=== PATIENT | female | born 1940 | race Caucasian/White ===

== ENCOUNTER 2022-04-19 11:03 | Outpatient (CLI) | payer MEDICARE, BC | END 2022-04-19 11:04 | disposition home or self-care (01) | LOC: CSHMAMMO 11:03 | PROVIDERS: ATTEND Internal Medicine | DX: Z12.31 Encounter for screening mammogram for malignant neoplasm of breast (principal) | CPT/HCPCS: 77063; 77067 ==

== ENCOUNTER 2023-04-23 10:16 | Outpatient (CLI) | payer MEDICARE, BC | END 2023-04-23 10:17 | disposition home or self-care (01) | LOC: CSHMAMMO 10:16 | PROVIDERS: ATTEND Internal Medicine | DX: Z12.31 Encounter for screening mammogram for malignant neoplasm of breast (principal) | CPT/HCPCS: 77063; 77067 ==

== ENCOUNTER 2024-03-01 06:06 | Emergency (ER) | payer MEDICARE ==
[2024-03-01 06:33] LABS: #Basophils 0.06 10x3/uL (0.0-0.2); #Eosinphils 0.17 10x3/uL (0.0-0.5); #Monocytes 0.84 10x3/uL (0.0-1.1); %Basophils 0.6 % (0.0-2.0); %Eosinophils 1.8 % (0.0-6.0); %Lymphocytes 26.3 % (18.0-47.0); %Monocytes 8.8 % (0.0-10.0); %Neutrophils 62.1 % (40.0-75.0); Hematocrit 30.9 % (34.9-44.5); Hemoglobin 10.8 g/dL (12.0-15.5); Mean Corpuscular Volume 91.7 fL (81.6-98.3); Platelet Count 401 10x3/uL (150-450); RBC Distribution Width 13.1 % (11.5-14.5); Red Blood Cell (RBC) Count 3.37 10x6/uL (3.90-5.03); White Blood Cell (WBC) Count 9.5 10x3/uL (3.5-10.5)
[2024-03-01 06:41] LABS: PTT 23.2 sec (22.0-33.0); Prothrombin Time 10.8 sec (9.5-12.1)
[2024-03-01 06:45] LABS: ALT (SGPT) 10 U/L (8-55); AST (SGOT) 22 U/L (5-34); Alkaline Phosphatase 114 U/L (40-110); Anion Gap 12 mmol/L (10-20); BUN (Urea Nitrogen) 32 mg/dL (9.8-20.1); Bilirubin, Total 0.3 mg/dL (0.2-1.2); Calc. Creatinine Clearance 0 mL/min (70-130); Calcium 9.1 mg/dL (7.8-10.44); Carbon Dioxide 17 mmol/L (23-31); Chloride 108 mmol/L (98-107); Estimated GFR 43; Globulin 2.1 g/dL (2.4-3.5); Glucose 113 mg/dL (83-110); Magnesium 1.8 mg/dL (1.6-2.6); Potassium 4.4 mmol/L (3.5-5.1); Protein, Total 5.1 g/dL (5.8-8.1); Sodium 133 mmol/L (136-145)
[2024-03-01 06:51] LABS: Troponin I Less than 0.010 ng/mL (< 0.028)
[2024-03-01] MEDS ORDERED: fentaNYL 50 mcg/mL 1 mL Vial ONE (06:55)
[2024-03-01 07:10] LABS: Acetaminophen Less than 10 mcg/mL (10.0-30.0); Alcohol Less than 10.0 mg/dL (Less than 10); Salicylate Less than 8.0 mg/dL (15.0-30.0)
[2024-03-01] MEDS ORDERED: Etomidate 40 MG (20 mL) VIAL ONE (07:29)
[2024-03-01] MEDS ORDERED: Ondansetron PF 4 MG/2 ML Vial ONE (07:59)
[2024-03-04] MEDS ORDERED: Vancomycin 1 GM VIAL ONE (13:02)
[2024-03-04] MEDS ORDERED: Gentamicin 80 MG (100 mL) BAG ONE (13:02)
[2024-03-04] MEDS ORDERED: ePHEDrine Sulfate 50 MG/10 ML VIAL ONE (13:36)
== END 2024-03-01 10:24 | disposition home or self-care (01) ==
LOC: CSHERS 06:06
DX: S73.014A Posterior dislocation of right hip, initial encounter (principal); I10 Essential (primary) hypertension; E78.00 Pure hypercholesterolemia, unspecified; Z79.899 Other long term (current) drug therapy; Z79.82 Long term (current) use of aspirin; W22.8XXA Striking against or struck by other objects, initial encounter
CPT/HCPCS: 27250; 70450; 71045; 72125; 72192; 73502; 80053; 80307; 83605; 83735; 83880; 84484; 85025; 85610; 85730; 93005; 96374; 96375; 99152; 99284; G0390; J2405; J3010

== ENCOUNTER 2024-03-03 16:21 | Inpatient (IN) | payer MEDICARE ==
[2024-03-03 20:24] VITALS: BMI 24.7
[2024-03-03 20:33] LABS: #Basophils 0.05 10x3/uL (0.0-0.2); #Eosinphils 0.08 10x3/uL (0.0-0.5); #Monocytes 0.74 10x3/uL (0.0-1.1); %Basophils 0.5 % (0.0-2.0); %Eosinophils 0.8 % (0.0-6.0); %Lymphocytes 22.6 % (18.0-47.0); %Monocytes 7.2 % (0.0-10.0); %Neutrophils 68.7 % (40.0-75.0); Hematocrit 29.9 % (34.9-44.5); Hemoglobin 10.1 g/dL (12.0-15.5); Mean Corpuscular HGB CONC 33.8 g/dL (32.0-36.0); Mean Corpuscular Hemoglobin 32.1 pg (27.0-33.0); Mean Corpuscular Volume 94.9 fL (81.6-98.3); Mean Platelet Volume 9.1 fL (7.4-10.4); Platelet Count 329 10x3/uL (150-450); RBC Distribution Width 13.2 % (11.5-14.5); Red Blood Cell (RBC) Count 3.15 10x6/uL (3.90-5.03); White Blood Cell (WBC) Count 10.3 10x3/uL (3.5-10.5)
[2024-03-03 20:49] LABS: Anion Gap 9 mmol/L (10-20); BUN (Urea Nitrogen) 26 mg/dL (9.8-20.1); Calc. Creatinine Clearance 36 mL/min (70-130); Calcium 8.5 mg/dL (7.8-10.44); Carbon Dioxide 20 mmol/L (23-31); Chloride 108 mmol/L (98-107); Estimated GFR 43; Glucose 103 mg/dL (83-110); Magnesium 1.7 mg/dL (1.6-2.6); Potassium 5.3 mmol/L (3.5-5.1); Sodium 132 mmol/L (136-145)
[2024-03-04 05:05] LABS: Anion Gap 8 mmol/L (10-20); BUN (Urea Nitrogen) 22 mg/dL (9.8-20.1); Calc. Creatinine Clearance 44 mL/min (70-130); Calcium 8.5 mg/dL (7.8-10.44); Carbon Dioxide 20 mmol/L (23-31); Chloride 110 mmol/L (98-107); Estimated GFR 55; Glucose 90 mg/dL (83-110); Potassium 4.8 mmol/L (3.5-5.1); Sodium 133 mmol/L (136-145)
[2024-03-05 04:27] LABS: #Basophils 0.01 10x3/uL (0.0-0.2); #Monocytes 0.46 10x3/uL (0.0-1.1); #Neutrophils 10.85 10x3/uL (1.5-8.4); %Basophils 0.1 % (0.0-2.0); %Lymphocytes 9.5 % (18.0-47.0); %Monocytes 3.7 % (0.0-10.0); %Neutrophils 86.1 % (40.0-75.0); Hematocrit 26.9 % (34.9-44.5); Hemoglobin 9.4 g/dL (12.0-15.5); Mean Corpuscular HGB CONC 34.9 g/dL (32.0-36.0); Mean Corpuscular Hemoglobin 32.9 pg (27.0-33.0); Mean Corpuscular Volume 94.1 fL (81.6-98.3); Mean Platelet Volume 9.5 fL (7.4-10.4); Platelet Count 299 10x3/uL (150-450); RBC Distribution Width 13.1 % (11.5-14.5); Red Blood Cell (RBC) Count 2.86 10x6/uL (3.90-5.03); White Blood Cell (WBC) Count 12.6 10x3/uL (3.5-10.5)
[2024-03-05 04:40] LABS: Anion Gap 10 mmol/L (10-20); BUN (Urea Nitrogen) 18 mg/dL (9.8-20.1); Calc. Creatinine Clearance 63 mL/min (70-130); Calcium 8.2 mg/dL (7.8-10.44); Carbon Dioxide 19 mmol/L (23-31); Chloride 110 mmol/L (98-107); Estimated GFR 84; Glucose 127 mg/dL (83-110); Magnesium 2.2 mg/dL (1.6-2.6); Potassium 4.8 mmol/L (3.5-5.1); Sodium 134 mmol/L (136-145)
[2024-03-05 04:41] LABS: Vancomycin, Random 21.3 ug/mL (See Comment)
[2024-03-06 03:49] LABS: Vancomycin, Random 21.7 ug/mL (See Comment)
[2024-03-06 03:50] LABS: Anion Gap 10 mmol/L (10-20); BUN (Urea Nitrogen) 13 mg/dL (9.8-20.1); Calc. Creatinine Clearance 70 mL/min (70-130); Calcium 7.9 mg/dL (7.8-10.44); Carbon Dioxide 18 mmol/L (23-31); Chloride 113 mmol/L (98-107); Estimated GFR 88; Glucose 90 mg/dL (83-110); Potassium 3.9 mmol/L (3.5-5.1); Sodium 137 mmol/L (136-145)
[2024-03-06 04:15] LABS: #Basophils 0.03 10x3/uL (0.0-0.2); #Monocytes 0.76 10x3/uL (0.0-1.1); #Neutrophils 6.29 10x3/uL (1.5-8.4); %Basophils 0.3 % (0.0-2.0); %Lymphocytes 28.3 % (18.0-47.0); %Monocytes 7.4 % (0.0-10.0); %Neutrophils 61.5 % (40.0-75.0); Hematocrit 25.6 % (34.9-44.5); Hemoglobin 8.6 g/dL (12.0-15.5); Mean Corpuscular HGB CONC 33.6 g/dL (32.0-36.0); Mean Corpuscular Hemoglobin 32.2 pg (27.0-33.0); Mean Corpuscular Volume 95.9 fL (81.6-98.3); Mean Platelet Volume 9.7 fL (7.4-10.4); Platelet Count 271 10x3/uL (150-450); RBC Distribution Width 13.4 % (11.5-14.5); Red Blood Cell (RBC) Count 2.67 10x6/uL (3.90-5.03); White Blood Cell (WBC) Count 10.2 10x3/uL (3.5-10.5)
[2024-03-07 03:56] LABS: Hematocrit 27.7 % (34.9-44.5); Hemoglobin 9.1 g/dL (12.0-15.5)
[2024-03-08 04:58] LABS: Vancomycin, Random 19.2 ug/mL (See Comment)
[2024-03-09 06:00] LABS: Anion Gap 10 mmol/L (10-20); BUN (Urea Nitrogen) 5 mg/dL (9.8-20.1); Calc. Creatinine Clearance 68 mL/min (70-130); Calcium 8.5 mg/dL (7.8-10.44); Carbon Dioxide 25 mmol/L (23-31); Chloride 108 mmol/L (98-107); Estimated GFR 88; Glucose 104 mg/dL (83-110); Potassium 4.1 mmol/L (3.5-5.1); Sodium 139 mmol/L (136-145)
[2024-03-09 06:03] LABS: Vancomycin, Random 20.1 ug/mL (See Comment)
[2024-03-10 03:58] LABS: Hemoglobin 9.4 g/dL (12.0-15.5); Mean Corpuscular HGB CONC 34.8 g/dL (32.0-36.0); Mean Corpuscular Hemoglobin 33.2 pg (27.0-33.0); Mean Corpuscular Volume 95.4 fL (81.6-98.3); Mean Platelet Volume 9.8 fL (7.4-10.4); Platelet Count 282 10x3/uL (150-450); RBC Distribution Width 13.6 % (11.5-14.5); Red Blood Cell (RBC) Count 2.83 10x6/uL (3.90-5.03); White Blood Cell (WBC) Count 9.1 10x3/uL (3.5-10.5)
[2024-03-10 04:11] LABS: ALT (SGPT) 14 U/L (8-55); AST (SGOT) 14 U/L (5-34); Albumin 2.1 g/dL (3.4-4.8); Alkaline Phosphatase 82 U/L (40-110); Anion Gap 9 mmol/L (10-20); BUN (Urea Nitrogen) 5 mg/dL (9.8-20.1); Bilirubin, Total 0.2 mg/dL (0.2-1.2); Calc. Creatinine Clearance 75 mL/min (70-130); Calcium 8.4 mg/dL (7.8-10.44); Carbon Dioxide 25 mmol/L (23-31); Chloride 107 mmol/L (98-107); Estimated GFR 90; Globulin 2.1 g/dL (2.4-3.5); Glucose 107 mg/dL (83-110); Potassium 3.3 mmol/L (3.5-5.1); Protein, Total 4.2 g/dL (5.8-8.1); Sodium 138 mmol/L (136-145)
[2024-03-10 10:17] VITALS: BMI 24.7
[2024-03-10 13:08] LABS: Magnesium 1.8 mg/dL (1.6-2.6)
[2024-03-11 05:46] LABS: #Basophils 0.03 10x3/uL (0.0-0.2); #Eosinphils 0.45 10x3/uL (0.0-0.5); #Monocytes 1.34 10x3/uL (0.0-1.1); #Neutrophils 6.71 10x3/uL (1.5-8.4); %Basophils 0.3 % (0.0-2.0); %Eosinophils 4.5 % (0.0-6.0); %Lymphocytes 14.9 % (18.0-47.0); %Monocytes 13.3 % (0.0-10.0); %Neutrophils 66.7 % (40.0-75.0); Hematocrit 27.1 % (34.9-44.5); Hemoglobin 9.1 g/dL (12.0-15.5); Mean Corpuscular HGB CONC 33.6 g/dL (32.0-36.0); Mean Corpuscular Hemoglobin 32.2 pg (27.0-33.0); Mean Corpuscular Volume 95.8 fL (81.6-98.3); Mean Platelet Volume 9.4 fL (7.4-10.4); Platelet Count 282 10x3/uL (150-450); RBC Distribution Width 13.7 % (11.5-14.5); Red Blood Cell (RBC) Count 2.83 10x6/uL (3.90-5.03); White Blood Cell (WBC) Count 10.1 10x3/uL (3.5-10.5)
[2024-03-11 06:06] LABS: Phosphorus 3.3 mg/dL (2.3-4.7)
[2024-03-11 06:08] LABS: Anion Gap 11 mmol/L (10-20); BUN (Urea Nitrogen) 5 mg/dL (9.8-20.1); Calc. Creatinine Clearance 67 mL/min (70-130); Calcium 8.6 mg/dL (7.8-10.44); Carbon Dioxide 26 mmol/L (23-31); Chloride 106 mmol/L (98-107); Estimated GFR 87; Glucose 100 mg/dL (83-110); Magnesium 2.1 mg/dL (1.6-2.6); Potassium 4.1 mmol/L (3.5-5.1); Sodium 139 mmol/L (136-145)
[2024-03-11 06:14] LABS: Vancomycin, Random 21.4 ug/mL (See Comment)
[2024-03-11 19:57] LABS: Hematocrit 25.2 % (34.9-44.5); Hemoglobin 8.5 g/dL (12.0-15.5)
[2024-03-12 03:40] LABS: Hematocrit 21.3 % (34.9-44.5); Hemoglobin 7.3 g/dL (12.0-15.5); Mean Corpuscular HGB CONC 34.3 g/dL (32.0-36.0); Mean Corpuscular Hemoglobin 32.4 pg (27.0-33.0); Mean Corpuscular Volume 94.7 fL (81.6-98.3); Mean Platelet Volume 9.9 fL (7.4-10.4); Platelet Count 264 10x3/uL (150-450); RBC Distribution Width 13.7 % (11.5-14.5); Red Blood Cell (RBC) Count 2.25 10x6/uL (3.90-5.03); White Blood Cell (WBC) Count 15.9 10x3/uL (3.5-10.5)
[2024-03-12 11:27] LABS: Hematocrit 19.3 % (34.9-44.5); Hemoglobin 6.6 g/dL (12.0-15.5); Platelet Count 229 10x3/uL (150-450)
[2024-03-12 22:34] LABS: #Basophils 0.03 10x3/uL (0.0-0.2); #Eosinphils 0.19 10x3/uL (0.0-0.5); #Monocytes 2.26 10x3/uL (0.0-1.1); #Neutrophils 9.91 10x3/uL (1.5-8.4); %Basophils 0.2 % (0.0-2.0); %Eosinophils 1.3 % (0.0-6.0); %Lymphocytes 13.4 % (18.0-47.0); %Monocytes 15.7 % (0.0-10.0); %Neutrophils 68.9 % (40.0-75.0); Hematocrit 29.6 % (34.9-44.5); Hemoglobin 10.5 g/dL (12.0-15.5); Mean Corpuscular HGB CONC 35.5 g/dL (32.0-36.0); Mean Corpuscular Hemoglobin 32.2 pg (27.0-33.0); Mean Corpuscular Volume 90.8 fL (81.6-98.3); Mean Platelet Volume 9.8 fL (7.4-10.4); Platelet Count 212 10x3/uL (150-450); RBC Distribution Width 15.2 % (11.5-14.5); Red Blood Cell (RBC) Count 3.26 10x6/uL (3.90-5.03); White Blood Cell (WBC) Count 14.4 10x3/uL (3.5-10.5)
[2024-03-13 05:04] LABS: Hematocrit 28.8 % (34.9-44.5); Hemoglobin 10.2 g/dL (12.0-15.5); Mean Corpuscular HGB CONC 35.4 g/dL (32.0-36.0); Mean Corpuscular Hemoglobin 32.1 pg (27.0-33.0); Mean Corpuscular Volume 90.6 fL (81.6-98.3); Mean Platelet Volume 9.9 fL (7.4-10.4); Platelet Count 198 10x3/uL (150-450); RBC Distribution Width 14.9 % (11.5-14.5); Red Blood Cell (RBC) Count 3.18 10x6/uL (3.90-5.03); White Blood Cell (WBC) Count 13.1 10x3/uL (3.5-10.5)
[2024-03-13 06:46] LABS: Hematocrit 27.6 % (34.9-44.5); Platelet Count 201 10x3/uL (150-450)
[2024-03-14 04:11] LABS: #Basophils 0.04 10x3/uL (0.0-0.2); #Monocytes 1.49 10x3/uL (0.0-1.1); #Neutrophils 7.25 10x3/uL (1.5-8.4); %Basophils 0.4 % (0.0-2.0); %Eosinophils 2.8 % (0.0-6.0); %Lymphocytes 15.6 % (18.0-47.0); %Monocytes 13.8 % (0.0-10.0); %Neutrophils 67.1 % (40.0-75.0); Hematocrit 29.1 % (34.9-44.5); Hemoglobin 10.1 g/dL (12.0-15.5); Mean Corpuscular HGB CONC 34.7 g/dL (32.0-36.0); Mean Corpuscular Hemoglobin 31.7 pg (27.0-33.0); Mean Corpuscular Volume 91.2 fL (81.6-98.3); Mean Platelet Volume 9.7 fL (7.4-10.4); Platelet Count 228 10x3/uL (150-450); RBC Distribution Width 14.6 % (11.5-14.5); Red Blood Cell (RBC) Count 3.19 10x6/uL (3.90-5.03); White Blood Cell (WBC) Count 10.8 10x3/uL (3.5-10.5)
[2024-03-14 04:26] LABS: Anion Gap 11 mmol/L (10-20); BUN (Urea Nitrogen) 9 mg/dL (9.8-20.1); Calc. Creatinine Clearance 64 mL/min (70-130); Calcium 8.6 mg/dL (7.8-10.44); Carbon Dioxide 27 mmol/L (23-31); Chloride 103 mmol/L (98-107); Estimated GFR 85; Glucose 104 mg/dL (83-110); Sodium 137 mmol/L (136-145)
[2024-03-17 04:35] LABS: #Basophils 0.04 10x3/uL (0.0-0.2); #Eosinphils 0.19 10x3/uL (0.0-0.5); #Monocytes 1.56 10x3/uL (0.0-1.1); #Neutrophils 8.63 10x3/uL (1.5-8.4); %Basophils 0.3 % (0.0-2.0); %Eosinophils 1.6 % (0.0-6.0); %Lymphocytes 13.1 % (18.0-47.0); %Neutrophils 71.8 % (40.0-75.0); Hematocrit 28.9 % (34.9-44.5); Mean Corpuscular HGB CONC 34.6 g/dL (32.0-36.0); Mean Corpuscular Hemoglobin 32.8 pg (27.0-33.0); Mean Corpuscular Volume 94.8 fL (81.6-98.3); Mean Platelet Volume 10.1 fL (7.4-10.4); Platelet Count 283 10x3/uL (150-450); RBC Distribution Width 13.8 % (11.5-14.5); Red Blood Cell (RBC) Count 3.05 10x6/uL (3.90-5.03)
[2024-03-17 04:54] LABS: ALT (SGPT) 14 U/L (8-55); AST (SGOT) 16 U/L (5-34); Albumin 2.2 g/dL (3.4-4.8); Alkaline Phosphatase 80 U/L (40-110); Anion Gap 13 mmol/L (10-20); BUN (Urea Nitrogen) 8 mg/dL (9.8-20.1); Bilirubin, Total 0.5 mg/dL (0.2-1.2); Calc. Creatinine Clearance 64 mL/min (70-130); Calcium 8.8 mg/dL (7.8-10.44); Carbon Dioxide 26 mmol/L (23-31); Chloride 100 mmol/L (98-107); Estimated GFR 85; Globulin 2.5 g/dL (2.4-3.5); Glucose 132 mg/dL (83-110); Magnesium 1.9 mg/dL (1.6-2.6); Protein, Total 4.7 g/dL (5.8-8.1); Sodium 135 mmol/L (136-145)
[2024-03-18 04:22] LABS: #Basophils 0.04 10x3/uL (0.0-0.2); #Eosinphils 0.19 10x3/uL (0.0-0.5); #Monocytes 1.97 10x3/uL (0.0-1.1); #Neutrophils 10.41 10x3/uL (1.5-8.4); %Basophils 0.3 % (0.0-2.0); %Eosinophils 1.4 % (0.0-6.0); %Lymphocytes 9.7 % (18.0-47.0); %Neutrophils 74.2 % (40.0-75.0); Hematocrit 30.4 % (34.9-44.5); Hemoglobin 10.3 g/dL (12.0-15.5); Mean Corpuscular HGB CONC 33.9 g/dL (32.0-36.0); Mean Corpuscular Hemoglobin 31.6 pg (27.0-33.0); Mean Corpuscular Volume 93.3 fL (81.6-98.3); Mean Platelet Volume 9.9 fL (7.4-10.4); Platelet Count 300 10x3/uL (150-450); RBC Distribution Width 13.4 % (11.5-14.5); Red Blood Cell (RBC) Count 3.26 10x6/uL (3.90-5.03)
[2024-03-18 04:39] LABS: Anion Gap 11 mmol/L (10-20); BUN (Urea Nitrogen) 8 mg/dL (9.8-20.1); Calc. Creatinine Clearance 62 mL/min (70-130); Calcium 8.5 mg/dL (7.8-10.44); Carbon Dioxide 27 mmol/L (23-31); Chloride 99 mmol/L (98-107); Estimated GFR 83; Glucose 108 mg/dL (83-110); Magnesium 2.2 mg/dL (1.6-2.6); Potassium 3.8 mmol/L (3.5-5.1); Sodium 133 mmol/L (136-145)
[2024-03-18 15:54] VITALS: BP 132/60; TEMP 98.4
== END 2024-03-18 18:40 | DRG 467 ==
LOC: CSHERS 16:21 → CSHTELE 18:20
PROVIDERS: ADMIT Family Medicine; ATTEND Internal Medicine
PROC: 0S990ZZ Drainage of Right Hip Joint, Open Approach (ICD-10-PCS; 2024-03-04)
PROC: 3E033XZ Introduction of Vasopressor into Peripheral Vein, Percutaneous Approach (ICD-10-PCS; 2024-03-04)
PROC: 0SW90JZ Revision of Synthetic Substitute in Right Hip Joint, Open Approach (ICD-10-PCS; principal; 2024-03-11)
PROC: 30233N1 Transfusion of Nonautologous Red Blood Cells into Peripheral Vein, Percutaneous Approach (ICD-10-PCS; 2024-03-12)
PROC: 02HV33Z Insertion of Infusion Device into Superior Vena Cava, Percutaneous Approach (ICD-10-PCS; 2024-03-18)
PROC: B5181ZA Fluoroscopy of Superior Vena Cava using Low Osmolar Contrast, Guidance (ICD-10-PCS; 2024-03-18)
PROC: 3E04329 Introduction of Other Anti-infective into Central Vein, Percutaneous Approach (ICD-10-PCS; 2024-03-18)
PROC: B548ZZA Ultrasonography of Superior Vena Cava, Guidance (ICD-10-PCS; 2024-03-18)
DX: T84.51XA Infection and inflammatory reaction due to internal right hip prosthesis, initial encounter (principal); D62 Acute posthemorrhagic anemia; M25.051 Hemarthrosis, right hip; N17.9 Acute kidney failure, unspecified; E87.1 Hypo-osmolality and hyponatremia; S73.014A Posterior dislocation of right hip, initial encounter; M24.451 Recurrent dislocation, right hip; E78.5 Hyperlipidemia, unspecified; K21.9 Gastro-esophageal reflux disease without esophagitis; I12.9 Hypertensive chronic kidney disease with stage 1 through stage 4 chronic kidney disease, or unspecified chronic kidney disease; N18.32 Chronic kidney disease, stage 3b; E78.00 Pure hypercholesterolemia, unspecified; B95.2 Enterococcus as the cause of diseases classified elsewhere; D72.829 Elevated white blood cell count, unspecified; D63.1 Anemia in chronic kidney disease; I95.9 Hypotension, unspecified; I25.10 Atherosclerotic heart disease of native coronary artery without angina pectoris; Z96.641 Presence of right artificial hip joint; Z87.81 Personal history of (healed) traumatic fracture; Z98.890 Other specified postprocedural states; Z90.710 Acquired absence of both cervix and uterus; Z79.899 Other long term (current) drug therapy; Z79.82 Long term (current) use of aspirin; W22.8XXA Striking against or struck by other objects, initial encounter
CPT/HCPCS: 27250; 36415; 36416; 36430; 36569; 70450; 71045; 72125; 72192; 76937; 77001; 80048; 80053; 80170; 80202; 80307; 82550; 82565; 83605; 83735; 83880; 84100; 84484; 85014; 85018; 85025; 85027; 85610; 85730; 86850; 86900; 86901; 87070; 87077; 87186; 87205; 93005; 93010; 94760; 96374; 96375; 97139; 99152; C1713; C1776; G0390; J0171; J0290; J0665; J0878; J1100; J1580; J1885; J2020; J2272; J2405; J2704; J3010; J3370; J3475; J3490; J7050; P9016